=== PATIENT | male | born 1990 | race African-American/Black ===

== ENCOUNTER 2024-05-15 18:06 | Emergency (ER) | payer OTHER ==
[2024-05-15 18:16] VITALS: TEMP 97.4
--- NOTE | 2024-05-15 23:32 | ED ---
Alcohol HPI - General Chief Complaint: Alcohol Stated Complaint: ETOH Time Seen by Provider: 05/15/24 18:11 Source: patient, EMS Mode of arrival: EMS Limitations: altered mental status - History of Present Illness Initial Comments: This patient is 33-year-old man3 brought to have evaluation for suspected intoxication with a subsequent fall. Patient reportedly had been found sleeping on someone's property. When responders went to investigate the patient attempted to get up and fell. At initial evaluation patient appears very intoxicated not able to cooperate with history and physical MD Complaint: alcohol intoxication Last Drink: unknown Recent Trauma: Yes Associated Symptoms: denies other symptoms - Related Data Allergies Allergy/AdvReac Type Severity Reaction Status Date / Time Unable to Assess Allergy Verified 05/15/24 18:16 Review of Systems ROS Statement: Those systems with pertinent positive or pertinent negative responses have been documented in the HPI. ROS Other: All systems not noted in ROS Statement are negative. Limitations: ROS unobtainable due to patients medical condition Past Medical History Past Medical History: Unable to Obtain Past Surgical History: Unable to Obtain Smoking Status: Unknown if ever smoked Past Alcohol Use History: Heavy Past Drug Use History: Unable to Obtain General Exam General appearance: appears intoxicated, obtunded Head exam: Present: atraumatic, normocephalic Eye exam: Present: PERRL, nystagmus. Absent: scleral icterus, conjunctival injection ENT exam: Present: normal oropharynx Neck exam: Present: normal inspection, full ROM. Absent: tenderness, meningismus Respiratory exam: Present: normal lung sounds bilaterally. Absent: respiratory distress, wheezes, rales, rhonchi, stridor, chest wall tenderness, accessory muscle use Cardiovascular Exam: Present: regular rate, normal rhythm, normal heart sounds GI/Abdominal exam: Present: soft. Absent: distended, tenderness, guarding, rebo und Extremities exam: Present: normal inspection, normal capillary refill. Absent: pedal edema, calf tenderness Back exam: Present: normal inspection. Absent: CVA tenderness (R), CVA tenderness (L) Neurological exam: Present: altered, CN II-XII intact. Absent: motor sensory deficit Skin exam: Present: warm, dry, intact, normal color. Absent: rash Course Vital Signs 05/15/24 05/15/24 05/15/24 18:10 20:21 21:00 Temperature 97.4 F L Pulse Rate 88 79 69 Respiratory 18 17 18 Rate Blood Pressure 107/64 110/71 O2 Sat by Pulse 100 97 98 Oximetry 05/15/24 05/15/24 05/16/24 22:00 23:00 01:30 Temperature Pulse Rate 71 90 70 Respiratory 16 16 14 Rate Blood Pressure 96/60 O2 Sat by Pulse 97 97 97 Oximetry Medical Decision Making - Medical Decision Making When I went to reevaluate the patient, I did awaken him he would arouse but he did not respond. Given history of fall I ordered CT scan. When the correctional maintenance technician went to collect the patient, he then woke up and was able to converse and refused to have the exam. Speech was clear. Moving all 4 extremities. Given that the patient was now able to be evaluated I canceled the scan, no evidence of head injury. Was pt. sent in by a medical professional or institution (, [facility]ENG, LOAD OUT PERSON, urgent care, hospital, or [facility]...) When possible be specific @ -[No] Did you speak to anyone other than the patient for history (EMS, parent, family, police, friend...)? What history was obtained from this source @ -[No] Did you review nursing and triage notes (agree or disagree)? Why? @ -[I reviewed and agree with nursing and triage notes] Were old charts reviewed (outside hosp., previous admission, EMS record, old EKG, old radiological studies, urgent care reports/EKG's, [facility] records)? Report findings @ -[No old charts were reviewed] Differential Diagnosis (chest pain, altered mental status, abdominal pain women, abdominal pain men, vaginal bleeding, weakness, fever, dyspnea, syncope, headache, dizziness, GI bleed, back pain, seizure, CVA, palpatations, mental health, musculoskeletal)? @ -[Differential Mental Health Depression, anxiety, bipolar, psychosis, schizophrenia, borderline personality, situational depression, adjustment disorder, behavioral disorder, brain tumor, malingering, substance abuse, encephalopathy, medication reaction, dementia, hypothyroidism, degenerative neurologic disorder, lupus.... This is not meant to be all-inclusive list EKG interpreted by me (3pts min.). @ -[As above] X-rays interpreted by me (1pt min.). @ -[None done] CT interpreted by me (1pt min.). @ -[None done] U/S interpreted by me (1pt. min.). @ -[None done] What testing was considered but not performed or refused? (CT, X-rays, U/S, labs)? Why? @ -[None] What meds were considered but not given or refused? Why? @ -[None] Did you discuss the management of the patient with other professionals (professionals i.e. , PA, LOAD OUT PERSON, lab, RT, psych nurse, renal social worker, instructor looping, teacher, disciplinary hearing officer, human services case manager)? Give summary @ -[No] Was smoking cessation discussed for >3mins.? @ -[No] Was critical care preformed (if so, how long)? @ -[No] Were there social determinants of health that impacted care today? How? (Homelessness, low income, unemployed, alcoholism, drug addiction, transportation, low edu. Level, literacy, decrease access to med. care, custodial, rehab)? @ -[No] Was there de-escalation of care discussed even if they declined (Discuss DNR or withdrawal of care, Hospice)? DNR status @ -[No] What co-morbidities impacted this encounter? (DM, HTN, Smoking, COPD, CAD, Cancer, CVA, ARF, Chemo, Hep., AIDS, mental health diagnosis, sleep apnea, morbid obesity)? @ -[None] Was patient admitted / discharged? Hospital course, mention meds given and route, prescriptions, significant lab abnormalities, going to OR and other pertinent info. @ -[hospital course] Undiagnosed new problem with uncertain prognosis? @ -[No] Drug Therapy requiring intensive monitoring for toxicity (Heparin, Nitro, Insulin, Cardizem)? @ -[No] Were any procedures done? @ -[No] Diagnosis/symptom? @ -[Acute alcohol intoxication Acute, or Chronic, or Acute on Chronic? @ -[Acute Uncomplicated (without systemic symptoms) or Complicated (systemic symptoms)? @ -[Complicated by altered mental status Side effects of treatment? @ -[No] Exacerbation, Progression, or Severe Exacerbation? @ -[No] Poses a threat to life or bodily function? How? (Chest pain, USA, OR, pneumonia, PE, COPD, DKA, ARF, appy, cholecystitis, CVA, Diverticulitis, Homicidal, Suicidal, threat to staff... and all critical care pts) @ -[No] Disposition Clinical Impression: Alcoholic intoxication Disposition: HOME SELF-CARE Condition: Good Instructions (If sedation given, give patient instructions): Alcohol Intoxication (ED) Is patient prescribed a controlled substance at d/c from ED?: No Referrals: None,Stated [Primary Care Provider] - 1-2 days
[2024-05-16 01:33] VITALS: BP 96/60; PULSE 70; RESP 14
== END 2024-05-16 01:32 | disposition home or self-care (01) ==
LOC: EC 18:06
DX: F10.129 Alcohol abuse with intoxication, unspecified (principal); Z91.048 Other nonmedicinal substance allergy status
CPT/HCPCS: 99284